=== PATIENT | female | born 1980 | race Caucasian/White ===

== ENCOUNTER 2018-01-08 20:41 | Emergency (ER) | payer OTHER, SELFPAY ==
[2018-01-08 20:44] VITALS: BP 125/75; PULSE 110; RESP 16; TEMP 36.7; O2SAT 100; BMI 41.1
--- NOTE | 2018-01-08 20:49 | DI.RAD.S_ITS ---
PROCEDURE: XR RIBS RT MIN 3V W CXR 1V INDICATIONS: fell in the shower, rib pain dyspnea TECHNIQUE: 2 views of the right ribs were acquired, along with a single view chest. COMPARISON: None. FINDINGS: Surgical changes and devices: None. Bones and chest wall: No displaced rib fracture. No suspicious bony lesions. Overlying soft tissues appear unremarkable. Lungs and pleura: No pleural effusions or pneumothorax. Lungs appear clear. Mediastinum: Mediastinal contours appear normal. Heart size is normal. IMPRESSION: No displaced rib fracture. Dictated by: Keri Simmons M.D. on 01/08/2018 at 21:30 Approved by: Keri Simmons M.D. on 01/08/2018 at 21:32
--- NOTE | 2018-01-08 23:09 | ED_ITS ---
HPI - SOB/Dyspnea General Chief Complaint: Shortness of Breath/Dyspnea Stated Complaint: DIFFICULTY BREATHING, PAIN S/P FALL Time Seen by Provider: 01/08/18 22:22 Source: patient Mode of arrival: ambulatory Limitations: no limitations History of Present Illness 37-year-old female here for evaluation of right-sided chest pain. Patient states that it started after she fell a couple days ago. Has had pain on the right side with palpation and deep breathing. No skin changes. No fevers. No cough. Related Data Previous Rx's Medication Instructions Recorded hydrocodone-acetaminophen [[place]] 1 tab PO Q4-6H PRN #10 tab 01/08/18 Review of Systems Constitutional Denies chills, Denies fatigue and Denies fever(s) Cardiovascular Reports chest pain (Right-sided chest wall), Denies diaphoresis, Denies syncope and Denies dyspnea Respiratory Reports pain on inspiration, Reports pain with cough and Denies dyspnea Musculoskeletal Denies myalgias and Denies arthralgias Integumentary/Breasts Denies lesions and Denies rash Neurologic Denies syncope Endocrine Denies fatigue Hematologic/Lymphatic Denies easy bleeding and Denies easy bruising [facility] Medical History Healthy adult (Acute) Surgical History No history of previous surgery (Acute) Exam Initial Vital Signs Initial Vital Signs: Vital Signs Temperature 98.1 F 01/08/18 20:44 Pulse Rate 110 H 01/08/18 20:44 Respiratory Rate 16 01/08/18 20:44 Blood Pressure 125/75 H 01/08/18 20:44 Pulse Oximetry 100 01/08/18 20:44 Const General: cooperative, healthy appearing, well developed, well groomed and No acute distress Orientation: alert, awake and oriented x3 Chest Other: Tenderness to palpation right-sided anterior lateral chest wall just under the breast. Resp Effort & Inspection: normal respiratory effort Auscultation: clear to auscultation bilaterally Cardio Rate: regular rate Rhythm: regular rhythm Skin Lesions: no lesions Rashes: no rashes Neuro General: alert, awake and oriented x3 Cognition: normal cognition Speech: speech normal Extrem General: normal to inspection Psych Appearance: grossly normal and well kempt Course Orders Ordered: ED Orders 01/08/18 20:49 XR ribs RT min 3V w CXR1V Stat Discontinued Medications Hydrocodone Bitart/Acetaminophen (Vicodin Prepack) 1 bottle MISC SEEINSTR ONE Stop: 01/08/18 23:10 Last Admin: 01/09/18 00:07 Dose: 1 bottle Ondansetron HCl (Zofran Odt Prepack) 1 bottle MISC SEEINSTR ONE Stop: 01/08/18 23:10 Last Admin: 01/09/18 00:08 Dose: 1 bottle Vital Signs - 8 hr 01/08/18 20:44 01/08/18 23:13 01/09/18 00:09 Temperature 98.1 F 97.8 F Pulse Rate 110 H 89 88 Respiratory Rate 16 18 17 Blood Pressure 125/75 H 116/75 Blood Pressure [Left Arm] 114/68 Pulse Oximetry 100 100 99 MDM - SOB/Dyspnea Imaging Data Chest x-ray: Radiologist's impression: PROCEDURE: XR RIBS RT MIN 3V W CXR 1V INDICATIONS: fell in the shower, rib pain dyspnea TECHNIQUE: 2 views of the right ribs were acquired, along with a single view chest. COMPARISON: None. FINDINGS: Surgical changes and devices: None. Bones and chest wall: No displaced rib fracture. No suspicious bony lesions. Overlying soft tissues appear unremarkable. Lungs and pleura: No pleural effusions or pneumothorax. Lungs appear clear. Mediastinum: Mediastinal contours appear normal. Heart size is normal. IMPRESSION: No displaced rib fracture. Dictated by: Keri Simmons M.D. on 01/08/2018 at 21:30 Approved by: Keri Simmons M.D. on 01/08/2018 at 21:[address] [facility] Narrative Medical decision making narrative: Patient with a history of physical exam consistent with either a rib fracture or a rib contusion. No obvious fractures were seen on the chest x-ray however patient is tender over the right anterior and lateral chest wall. Lungs were clear. No signs of pulmonary contusion. No fevers or signs of pneumonia. Informed patient that there was no rib fracture seen on the x-ray however this does not mean that there is not a small crack in the rib. We did discuss the concerns regarding this including appropriate pulmonary toilet. Will send home with pain medication. She was given return precautions. She expressed understanding and agreement with plan. Discharge Plan Departure Patient Disposition: Home, Self-Care Clinical Impression: Rib pain on right side Discharge Date/Time: 01/09/18 00:10 Interventions: ED Discharge Assessment Last Done: 01/09/18 00:09 Instructions: DI for Rib Fracture Activity Restrictions/Additional Instructions: Take the pain medication likely discussed. Make sure you are occasionally taking big deep breaths. Return to the emergency department for any new symptoms, worsening shortness of breath, fevers, or any other concerning symptoms Prescriptions: New hydrocodone-acetaminophen [[place]] 5-325 mg tablet 1 tab PO Q4-6H PRN (Reason: pain) Qty: 10 RF: 0
[2018-01-08 23:13] VITALS: BP 114/68; PULSE 89; RESP 18; O2SAT 100
[2018-01-09] MEDS: HYDROCODONE/ACET 5/325 PREPACK 1 BOTTLE MISC (00:07)
[2018-01-09] MEDS: ONDANSETRON 4 MG ODT PREPACK 1 BOTTLE MISC (00:08)
[2018-01-09 00:09] VITALS: BP 116/75; PULSE 88; RESP 17; TEMP 36.6; O2SAT 99
== END 2018-01-09 00:10 | disposition home or self-care (01) ==
PROVIDERS: Emergency Provider Emergency Medicine
DX: R07.81 Pleurodynia (principal)
CPT/HCPCS: 71101; 99282; 99283

== ENCOUNTER 2018-05-01 21:02 | Emergency (ER) | payer OTHER, SELFPAY ==
[2018-05-01 21:04] VITALS: BP 148/96; PULSE 93; RESP 20; TEMP 37.1; O2SAT 100; BMI 36.0
[2018-05-01 22:31] VITALS: BP 148/96; PULSE 93; RESP 20; TEMP 37.1; O2SAT 100; BMI 36.0
--- NOTE | 2018-05-01 23:12 | ED.HA ---
HPI - Headache General Chief Complaint: Headache Stated Complaint: migraine headaches Time Seen by Provider: 05/01/18 22:38 Source: patient Mode of arrival: ambulatory Limitations: no limitations History of Present Illness HPI Narrative: patient is a 38-year-old female with a history of migraine headaches who has been evaluated multiple times in the past for these. She is on daily headache medications. She states that for the past several months she has had a daily headache which has worsened over the past 2 weeks. She states it feels like 1 of her prior headaches. No trauma. Has been taking her medications. She has an appointment with a neurologist in the middle of next month. Related Data Previous Rx's Medication Instructions Recorded hydrocodone-acetaminophen [[place]] 1 tab PO Q4-6H PRN #10 tab 01/08/18 Allergies Allergy/AdvReac Type Severity Reaction Status Date / Time No Known Drug Allergies Allergy Verified 05/01/18 21:11 Review of Systems Constitutional Denies fever(s) and Reports headache(s) Eyes Denies blurry vision, Denies change in vision and Reports photophobia ENT Ears, Nose, Mouth, and Throat: Denies vertigo, Denies dizziness and Reports headache(s) Cardiovascular Denies chest pain and Denies dyspnea Respiratory Denies dyspnea Gastrointestinal Gastrointestinal: Denies abdominal pain Integumentary/Breasts Denies rash Neurologic Denies vertigo, Denies dizziness and Reports headache(s) Hematologic/Lymphatic Comments: Not on anticoagulation PFSH Medical History Healthy adult (Acute) History of fibromyalgia (Acute) Migraines (Acute) Surgical History No history of previous surgery (Acute) Social History marital status: unknown lives independently: Yes Exam Initial Vital Signs Initial Vital Signs: Vital Signs Temperature 98.7 F 05/01/18 21:04 Pulse Rate 93 H 05/01/18 21:04 Respiratory Rate 20 05/01/18 21:04 Blood Pressure 148/96 H 05/01/18 21:04 Pulse Oximetry 100 05/01/18 21:04 Const General: cooperative, healthy appearing, comfortable, well developed, well groomed and No acute distress Orientation: alert, awake and oriented x3 HENMT Head: normal to inspection and normocephalic Resp Effort & Inspection: normal respiratory effort Cardio Rate: regular rate Skin Rashes: no rashes Neuro General: alert, awake and oriented x3 Cognition: normal cognition Speech: speech normal Gait: normal gait Extrem General: normal to inspection Psych Appearance: grossly normal and well kempt Course Orders Ordered: Discontinued Medications Diphenhydramine HCl (Benadryl) 25 mg IV NOW ONE Stop: 05/01/18 23:22 Last Admin: 05/01/18 23:38 Dose: 25 mg Sodium Chloride (Normal Saline 0.9%) 1,000 mls @ 1,000 mls/hr IV BOLUS ONE Stop: 05/02/18 00:20 Last Infusion: 05/02/18 00:38 Dose: 1,000 mls/hr Admin: 05/01/18 23:38 Dose: 1,000 mls/hr Ketorolac Tromethamine (Toradol) 30 mg IV NOW ONE Stop: 05/01/18 23:22 Last Admin: 05/01/18 23:37 Dose: 30 mg Methylprednisolone (Solu-Medrol 125 Mg Vial) 125 mg IV NOW ONE Stop: 05/01/18 23:22 Last Admin: 05/01/18 23:37 Dose: 125 mg Metoclopramide HCl (Reglan) 10 mg IV NOW ONE Stop: 05/01/18 23:22 Last Admin: 05/01/18 23:37 Dose: 10 mg Vital Signs - 8 hr 05/01/18 21:04 05/01/18 22:31 05/02/18 00:41 Temperature 98.7 F 98.7 F Pulse Rate 93 H 93 H 68 Respiratory Rate 20 20 15 Blood Pressure 148/96 H 148/96 H 100/58 L Pulse Oximetry 100 100 99 MDM - Headache MDM Narrative Medical decision making narrative: patient with a history of migraines. States this feels like 1 of her migraines. No trauma. Low suspicion for intracranial hemorrhage, mass, meningitis. Patient was given medications here in the emergency department which she states improved her headache somewhat. Offered her more medications but she declined. Stated she would rather go home and sleep. Will hold on further workup for now. Patient was given return precautions. Instructed she needed to keep her appointment with her primary doctor and also her neurologist. She expressed understanding and agreement this plan. Discharge Plan Departure Patient Disposition: Home Clinical Impression: Migraine Discharge Date/Time: 05/02/18 00:35 Interventions: ED Discharge Assessment Last Done: 05/02/18 00:41 Instructions: Migraine Headaches (Alternative Therapy), DI for Migraine Activity Restrictions/Additional Instructions: no driving for the next 24 hr. Recommend you contact your primary doctor to discuss your headaches and any changes in medications. Continue your medications as directed. Return to the emergency department for any new or worsening symptoms. Prescriptions: No Action hydrocodone-acetaminophen [[place]] 5-325 mg tablet 1 tab PO Q4-6H PRN (Reason: pain) Qty: 10 RF: 0
[2018-05-01] MEDS: methylPREDNISolone 125 MG/2 ML VIAL IV (23:37)
[2018-05-01] MEDS: KETOROLAC 60 MG/2 ML VIAL 30 MG IV (23:37)
[2018-05-01] MEDS: METOCLOPRAMIDE 10 MG/2 ML INJ IV (23:37)
[2018-05-01] MEDS: diphenhydrAMINE 50 MG/ML VIAL 25 MG IV (23:38)
[2018-05-01] MEDS: SODIUM CHLORIDE 0.9% 1,000 ML 1000 ML IV (23:38)
[2018-05-02 00:41] VITALS: BP 100/58; PULSE 68; RESP 15; O2SAT 99
== END 2018-05-02 00:35 | disposition home or self-care (01) ==
PROVIDERS: Emergency Provider Emergency Medicine
DX: G43.909 Migraine, unspecified, not intractable, without status migrainosus (principal)
CPT/HCPCS: 96361; 96374; 96375; 99283; 99284; J1200; J1885; J2765; J2930